=== PATIENT | female | born 1975 | race Caucasian/White ===

== ENCOUNTER 2017-02-04 00:20 | Day surgery (SDC) | payer SELFPAY ==
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
--- NOTE | ~2017-02-04 | OR ---
PATIENT'S NAME: LIBRA DEL RIO [facility] AGE: 41 Y [address] ROOM: [place] [address] LOCATION: [facility] ADMIT DATE: 02/04/2017 OR/Procedure Report DISCHARGE DATE: FAMILY PHYSICIAN: PHYSICIAN, NO ATTENDING PHYSICIAN: lEyssa Kim SURGEON: Lars Gardner MD WINTER SPORTS MANAGER: None. DATE OF PROCEDURE: 02/04/2017 CORRECTED DOS 02/17/17 AO PREOPERATIVE DIAGNOSIS: Complex laceration, left nicole (3 cm). POSTOPERATIVE DIAGNOSIS: Complex laceration, left nicole (3 cm). PROCEDURE PERFORMED: Exploration, irrigation, debridement, and closure of left nicole laceration (3 cm long wound). ANESTHESIA: General. ESTIMATED BLOOD LOSS: Less than 5 mL. DRAINS: None. SPECIMENS: None. COMPLICATIONS: None. INDICATION FOR PROCEDURE: Ms. Del Rio is a 41-year-old female who sustained a complex laceration at the anterior aspect of her left nicole as a result of stepping into a hole this evening. She has received a tetanus booster as well as empiric prophylactic antibiotics. The physician's market research assistant who evaluated her at an outlying facility thought that she saw a "MAKSIM" at the tibialis anterior tendon. A nonviable thin proximal skin flap was also noted, and the patient was referred here for definitive intervention. The patient has been informed of the potential for skin necrosis, potential need for wound VAC placement, and potential need for skin grafting. She understands that she is at the significant risk for infection (even with adequate irrigation and debridement). Informed consent granted. DESCRIPTION OF PROCEDURE: The patient was positioned supine. General endotracheal anesthesia was administered. Photographic documentation of the wound was obtained. The left lower extremity was prepped and draped with vigilant sterile technique. Inspection of the wound demonstrated a curvilinear laceration with a proximally based very thin flap of dark skin. This flap was essentially PATIENT'S NAME: LIBRA DEL RIO [facility] AGE: 41 Y [address] ROOM: [place] [address] LOCATION: [facility] ADMIT DATE: 02/04/2017 OR/Procedure Report DISCHARGE DATE: FAMILY PHYSICIAN: PHYSICIAN, NO ATTENDING PHYSICIAN: Elyssa Kim denuded of underlying adipose tissue and was nonviable. The superior skin flap was also moderately macerated. Nonviable skin around the periphery of the laceration was sharply debrided as was macerated subcutaneous adipose tissue. The tibialis anterior tendon was inspected and was confirmed to be intact. The tibialis anterior tendon sheath was not violated. There was no stripping of the periosteum off the tibia itself. There was no violation of the anterior compartment fascia. The incision was irrigated with several 100 mL of sterile saline containing bacitracin. The skin was closed (with mild tension) with superficial buried interrupted 2-0 Vicryl sutures, followed by several horizontal mattress, interrupted 2-0 nylon sutures. The dressings consisted of Xeroform gauze followed by sterile gauze and an Santhosh wrap. POSTOPERATIVE REHABILITATION PLAN: Cam boot to minimize tension on the incision and maximize comfort. Nonweightbearing. No ankle range of motion. No dressing changes. She will be kept immobilized for 2 weeks. Warning signs of infection have been reviewed. She will come in for a wound check 1-week from now, but sutures were not to be removed for 2 weeks. She was sent home with a 24-hour course of prophylactic antibiotics (Keflex). MD SAIMA ROBERSON/veronica /[id number] CORRECTED DOS 02/17/17 AO d: 02/04/17 0422 t: 02/17/17 2223, OPERATIVE SUMMARY
[2017-02-04] MEDS ORDERED: KEFLEX500 MG PO (03:29)
[2017-02-04] MEDS ORDERED: VICODIN 5-3001 EACH PO (03:32)
[2017-05-23] MEDS ORDERED: NORCO 5-325 TA1 EACH PO (13:40)
[2017-05-27] MEDS ORDERED: ARTIFICIAL TEAR15 ML OPHTH (11:10)
[2017-05-27] MEDS ORDERED: AMOXICILLIN250 MG PO (11:11)
== END 2017-02-04 04:37 | disposition disaster alternative care site (69) ==
LOC: GACC 00:20 → GSDC 04:36
PROC: 0JBP0ZZ Excision of Left Lower Leg Subcutaneous Tissue and Fascia, Open Approach (ICD-10-PCS; principal; 2017-02-04)
DX: S81.812A Laceration without foreign body, left lower leg, initial encounter (principal); M79.7 Fibromyalgia; Z90.49 Acquired absence of other specified parts of digestive tract
CPT/HCPCS: J0690; J3010; J7120

== ENCOUNTER 2017-05-17 22:06 | Emergency (ER) | payer MEDICAID ==
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
[~2017-05-17 22:06] MED LIST: KEFLEX500 MG PO; VICODIN 5-3001 EACH PO
[2017-05-23] MEDS ORDERED: NORCO 5-325 TA1 EACH PO (13:40)
[2017-05-27] MEDS ORDERED: ARTIFICIAL TEAR15 ML OPHTH (11:10)
[2017-05-27] MEDS ORDERED: AMOXICILLIN250 MG PO (11:11)
== END 2017-05-18 00:03 | disposition disaster alternative care site (69) ==
LOC: GACC 22:06
DX: S02.32XA Fracture of orbital floor, left side, initial encounter for closed fracture (principal); F17.210 Nicotine dependence, cigarettes, uncomplicated; M79.7 Fibromyalgia; R53.82 Chronic fatigue, unspecified; Z98.890 Other specified postprocedural states; Z90.49 Acquired absence of other specified parts of digestive tract; Y04.0XXA Assault by unarmed brawl or fight, initial encounter

== ENCOUNTER 2017-05-20 17:08 | Emergency (ER) | payer MEDICAID ==
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
[2017-05-23] MEDS ORDERED: NORCO 5-325 TA1 EACH PO (13:40)
[2017-05-27] MEDS ORDERED: ARTIFICIAL TEAR15 ML OPHTH (11:10)
[2017-05-27] MEDS ORDERED: AMOXICILLIN250 MG PO (11:11)
== END 2017-05-20 17:28 | disposition disaster alternative care site (69) ==
LOC: GACC 17:08
DX: S02.32XD Fracture of orbital floor, left side, subsequent encounter for fracture with routine healing (principal); F17.210 Nicotine dependence, cigarettes, uncomplicated; Z90.49 Acquired absence of other specified parts of digestive tract; Z98.51 Tubal ligation status; Z98.890 Other specified postprocedural states; X58.XXXA Exposure to other specified factors, initial encounter; Z79.891 Long term (current) use of opiate analgesic

== ENCOUNTER 2017-05-26 10:31 | Day surgery (SDC) | payer MEDICAID ==
[~2017-05-26] VITALS: Ht 157.5 cm; Wt 77.8 kg
[~2017-05-26 10:31] MED LIST changes: +NORCO 5-325 TA1 EACH PO
[2017-05-26 11:08] LABS: BASOPHIL # 0.1 K/uL (0.0-0.2); BASOPHIL % 1.3 %; EOSINOPHIL # 0.3 K/uL (0.0-0.5); HEMATOCRIT 41.8 % (33.0-46.0); HEMOGLOBIN 14.1 g/dL (10.0-15.0); IMMATURE GRANULOCYTE % 0.1 %; LYMPHOCYTE # 2.6 K/uL (0.8-4.0); LYMPHOCYTE % 36.4 %; MCH 33.1 pg (27.0-34.0); MCHC 33.7 gm/dL (32.0-36.5); MCV 98.1 fl (83.0-98.0); MONOCYTE # 0.7 K/uL (0.0-1.0); MONOCYTE % 10.3 %; MPV 10.4 fl (9.4-12.4); NEUTROPHIL # (ANC) 3.4 K/uL (1.8-7.8); NEUTROPHIL % 47.9 %; NRBC % 0 /100WBC (0-0.00); PLATELET COUNT 266 K/uL (150-450); RBC 4.26 M/uL (3.50-5.50); RDW-CV 13.2 % (11.9-14.6); WBC 7.2 K/uL (4.0-11.0)
--- NOTE | 2017-05-26 20:21 | NUR ---
PT ARRIVED IN [facility] TODAY AT 1043 TO GET READY FOR HER SURGERY WITH DR. BENTLEY. SHE WAS ADVISED TO COME AT 1100. THE PT WAS SUPPOSED TO GO TO SURGERY AT [address] BENTLEY'S LAST CASE OF THE DAY. THE PT'S CASE BECAME DELAYED DR. BENTLEY'S FIRST CASE TODAY WAS DELAYED, BECAUSE A PIECE OF EQUIPMENT WENT DOWN IN LAB AND THEY WERE UNABLE TO PERFORM A SPECIFIC TEST NEEDED FOR THAT PARTICULAR CASE. SO DR. BENTLEY TOOK HIS SECOND CASE BACK TO THE OR FIRST AT 0830 THIS MORNING. SO HE WAS ALREADY DELAYED AND BEHIND. ALSO DR. BENTLEY'S FIRST TWO CASES WERE BIG PROCEDURES AND WERE BOTH SDR CASES EACH CASE TOOK ABOUT 3-4 HOURS TO PERFORM. THE THIRD CASE WENT TO THE OR AT 1528 WITH LIBRA'S TO FOLLOW. HOWEVER ONCE DR. BENTLEY WAS DONE WITH HIS THIRD PT HE CAME TO SEE LIBRA AND HER FAMILY. THIS WAS AT 1630 AND AT THAT TIME HE ADVISED THEM THAT HER PROCEDURE WAS GOING TO BE DELAYED A LITTLE LONGER THERE WAS AN EMERGENCY THAT NEEDED TO GO TO THE OR RIGHT AWAY AND THEY WERE NOW WAITING FOR ANESTHESIA TO GET DONE WITH THAT TO BE ABLE TO START HER PROCEDURE. THE PT WAS ALREADY UPSET AND CUSSING AT ME PRIOR TO THIS THAT SHE HAD NOT GONE TO SURGERY YET AND SHE HADN'T EATEN IN ALMOST 24HOURS AND HAS NOT BEEN ABLE TO SMOKE. I ADVISED THE PT AT 1620 OR SO THAT THEY WERE CLOSING ON DR. BENTLEY'S CASE AHEAD OF HER AND SHE WOULD BE NEXT. I WENT AHEAD AND GAVE THE PT HER PREOP MEDS THAT WERE ORDERED BY ANESTHESIA THIS INCLUDED VERSED, ZOFRAN AND DECADRON. THE PT WAS HAPPY THAT SHE WAS NEXT. HOWEVER I HAD NOT BE INFORMED BY THE OR THAT SHE WAS NOW BEING BUMPED FOR AN EMERGENCY UNTIL DR. BENTLEY CAME TO VISIT WITH HER AT 1630. AT 1630 DID OFFER THE PT TO RESCHEDULE TO TOMORROW 05/27/17 AT 0630 FOR AN 0800 CASE TIME. PT ADVISED SHE WANTED TO WAIT AND HAVE SURGERY YET TONIGHT SHE IS ALREAY HERE AND READY. DR. BENTLEY LEFT AND THE PT CONTINUED TO WAIT IN HER ROOM IN [facility]. THE PT'S MOM AND GRANDMA CAME OUT TO THE DESK SEVERAL TIMES ASKING WHY SHE HAD NOT WENT TO SURGERY AND WHAT THE HOLD UP WAS. THE PT'S MOM AND GRANDMA WERE GETTING UPSET AT ME AND WERE ALSO STARTING TO CUSE. PT'S GRANDMA ADVISED ME THAT A "HEAD BLEED IS NOT AN EMERGENCY I HAD ONE FOR 21 DAYS AND IM FINE AND DID NOT HAVE SURGERY ON IT." LATER ON THE PT'S MOM THEN APPROACHED ME IN THE HALLWAY AND BEGAN FOLLOWING ME AROUND ASKING ME WHY THEY WERE STILL WAITING. I THEN AGAIN ADVISED THEM THAT THERE TWO EMERGENCY SURGERIES GOING ON WE SPEAK. THE PT'S MOM THEN INFORMED ME, "I WOULD NOT GO IN HER ROOM SHE IS VERY PISSED OFF AND UNLESS YOU GIVE HER A SEDATIVE THERE IS NOTHING THAT WILL CALM HER DOWN." SHE THEN STATED,"CAN'T YOU JUST TURN AND LOOK THE OTHER WAY SO SHE CAN GO HAVE A CIGARETTE AND SHE'LL BE BACK IN WHEN SHE IS DOWN." I ADVISED THE PT'S MOM I COULD NOT DO THIS HER PROCEDURE WOULD BE CANCELED IF THIS HAPPENED. THE PT'S MOM THEN SAID TO ME,"WELL YOU MIGHT WELL GO LET HER UP AND LET HER GO HOME CAUSE SHE IS PISSED AND HASN'T EATEN OR SMOKED IN ALMOST 24HOURS." I ADVISED THE PT'S MOM AGAIN THAT IF THE PT WOULD LIKE TO RESCHEDULE TO TOMORROW DR. BENTLEY ONCE OFFERED SHE COULD DO SO AND THIS WAS AT 1755. AT ABOUT 1815 THE PT PUT HER CALL LIGHT ON AND I WENT TO THE ROOM. I WALKED INTO THE ROOM I ASKED THE PT HOW I COULD HELP HER. THE PT BEGAN CUSSING AT ME AND TELLING ME TO "UNHOOK ME FOR ALL OF THIS SHIT IM GOING THE F HOME, I'M TIRED OF WAITING I'VE BEEN HERE 9 HOURS AND THIS IS CRAP." ADVISED THE PT THAT I UNDERSTOOD AND I WOULD CONTACT DR. BENTLEY. I CALLED DR. BENTLEY AND ASKED HIM TO COME SEE THE PT SHE IS VERY UPSET AND YELLING AND CUSSING AT ME. DR. BENTLEY TALKED TO THE PT ON THE PHONE. PT WAS NICE AND CALM WITH DR. BENTLEY EACH TIME SHE SPOKE WITH HIM. ONCE OF THE PHONE WITH DR. BENTLEY AND I THEN SPOKE WITH HIM AND HE ADVISED HE WOULD DO THE SURGERY TOMORROW MORNING AT 0800 IF THE PT COULD ARRIVE AT 0630. DR. BENTLEY DID ADVISE THE PT AND MYSELF THAT DOES HAVE TWO QUICK SURGERIES TOMORROW MORNING AT 0700 AT [facility] AND THEN HE WILL BE DOWN HERE TO DO LIBRA'S CASE. I WAS ON THE PHONE WITH DR. BENTLEY AND THE OR DESK THE PT BEGAN YELLING AND CUSSING IN THE HALLWAY AT [employer] SHE WANTED TO LEAVE OUR DEPARTMENT WITH HER IV AND GO SMOKE A CIGARETTE AND COME BACK WHEN SHE WAS DONE. LUAN AND ANEESH BOTH ADVISED THE PT THAT SHE COULD NOT GO OUTSIDE WITH THE IV IN AND THAT IT NEEDED TO BE REMOVED BEFORE SHE COULD DO SO. THE PT THEN STARTED YELLING AND CUSSING AGAIN AND STATED MULTIPLE TIMES THAT I'M NEVER COMING BACK HERE I WILL GO SOMEWHERE ELSE AND HAVE MY SURGERY. [employer] REMOVED THE PT'S IV AND THE PT WALKED OUT. I WAS STILL ON THE PHONE WITH DR. BENTLEY AND ADVISED HIM THAT THE PT JUST WALKED OUT. I ADVISED HIM I WAS GOING TO WALK OUTSIDE AND VISIT WITH THE PT IF POSSIBLE. ADVISED HIM I WOULD LET HIM KNOW IF SURGERY WAS A GO TOMORROW OR NOT. DR. BENTLEY AGREED. I WENT TO THE [facility] AND FOUND THE PT SITTING IN THE CAR SMOKING. SHE INFORMED SHE WAS PLANNING ON COMING BACK IN ONCE SHE WAS DONW. I ASKED THE PT IF SHE WOULD LIKE TO COME BACK TOMORROW MORNING AT 0630 FOR AN 0800 PROCEDURE TIME. THE PT AGREED TO THIS I ONCE AGAIN INFORMED THE PT THAT DR. BENTLEY WAS AT [facility] TO START WITH AND THEN WOULD BE DOWN HERE AT [facility] TO DO HER PROCEDUREAND THE PT ONCE AGAIN AGREED. THE PT WAS LEFT AT THE [facility] WITH HER FAMILY AT 1840. [facility] FAMILY AND MARRIAGE COUNSELLOR WAS CONTACTED AND INFORMED OF WHAT WENT ON THIS EVENING WITH THE PT WELL.
[2017-05-27] MEDS ORDERED: ARTIFICIAL TEAR15 ML OPHTH (11:10)
[2017-05-27] MEDS ORDERED: AMOXICILLIN250 MG PO (11:11)
== END 2017-05-26 18:30 | disposition disaster alternative care site (69) ==
LOC: GSDC 10:31
PROVIDERS: Otolaryngology
DX: S02.32XA Fracture of orbital floor, left side, initial encounter for closed fracture (principal); F17.210 Nicotine dependence, cigarettes, uncomplicated; Z90.49 Acquired absence of other specified parts of digestive tract; Z98.890 Other specified postprocedural states; Z53.8 Procedure and treatment not carried out for other reasons; X58.XXXA Exposure to other specified factors, initial encounter
CPT/HCPCS: J1100; J2001; J2250; J2405; J3010; J7030